=== PATIENT | female | born 1975 | race Caucasian/White ===

== ENCOUNTER 2018-12-29 19:26 | Emergency (ER) | payer MEDICAID ==
[2018-12-29] MEDS ORDERED: METHYLPREDNISOLONE INJ 125 MG/2 ML SDV IV ONE (19:59)
[2018-12-29] MEDS ORDERED: IPRATROPIUM/ALBUTEROL 0.5-2.5 MG/3 ML AMPUL NEB ONE ×2 (19:59→20:39)
--- NOTE | 2018-12-29 20:07 | ER Document Report ---
ED Medical Screen (RME) - General Chief Complaint: Asthma Exacerbation Stated Complaint: DIFFICULTY BREATHING Time Seen by Provider: 12/29/18 19:58 Mode of Arrival: Ambulatory Information source: Patient - HPI Notes: 12/29/18 20:00 25-year-old female presents the ED for evaluation of acute respiratory distress laceration of asthma and COPD, patient states his dad asthma or COPD exacerbation in the last 2 years, she is visiting here from [place], states she did not realize how bad the allergies have been. States she is tried 3 nebs today however they have not helped her. Denies any chest pain, reports shortness of breath denies any nausea vomiting or diarrhea no fevers or chills. LUNGS: Breath sounds clear to auscultation bilaterally and equal. No wheezes rales or rhonchi. HEART: Regular rate and rhythm without murmurs ABDOMEN: Soft, nontender, nondistended abdomen. No guarding, no rebound. No masses appreciated. Female : deferred Musculoskeletal: Normal range of motion, no pitting or edema. No cyanosis. NEUROLOGICAL: Cranial nerves grossly intact. Normal speech, normal gait. Normal sensory, motor exams PSYCH: Normal mood, normal affect. SKIN: Warm, Dry, normal turgor, no rashes or lesions noted. I have greeted and performed a rapid initial assessment of this patient. A comprehensive ED assessment and evaluation of the patient, analysis of test results and completion of medical decision making process will be conducted by an additional ED providers. - Related Data Allergies/Adverse Reactions: No Known Allergies Allergy (Unverified 12/29/18 19:28) Physical Exam - Vital signs Vitals: Temp Pulse Resp BP Pulse Ox 98.1 F 99 26 H 153/52 H 93 12/29/18 19:32 12/29/18 19:32 12/29/18 19:32 12/29/18 19:32 12/29/18 19:32 Course - Vital Signs Vital signs: Temp Pulse Resp BP Pulse Ox 98.1 F 99 26 H 153/52 H 93 12/29/18 19:32 12/29/18 19:32 12/29/18 19:32 12/29/18 19:32 12/29/18 19:32
[2018-12-29 20:13] LABS: ABSOLUTE EOSINOPHILS # (AUTO) 0.7 10^3/uL (0.0-0.6); ABSOLUTE LYMPHOCYTES (AUTO) 3.2 10^3/uL (0.5-4.7); ABSOLUTE MONOCYTES (AUTO) 0.7 10^3/uL (0.1-1.4); ABSOLUTE NEUT (AUTO) 3.3 10^3/uL (1.7-8.2); BASOPHILS % (AUTO) 0.6 % (0-2); EOSINOPHILS % (AUTO) 8.4 % (0-6); HEMATOCRIT 40.7 % (36.0-47.0); LYMPHOCYTES % (AUTO) 40.4 % (13-45); MEAN CORPUSCULAR HEMOGLOBIN 29.2 pg (27.0-33.4); MEAN CORPUSCULAR HGB CONC 34.3 g/dL (32.0-36.0); MEAN CORPUSCULAR VOLUME 85 fl (80-97); MONOCYTES % (AUTO) 8.6 % (3-13); PLATELET COUNT 364 10^3/uL (150-450); RED BLOOD COUNT 4.77 10^6/uL (3.72-5.28); RED CELL DISTRIBUTION WIDTH 14.7 % (11.5-14.0); TOTAL CELLS COUNTED % (AUTO) 100 %; WHITE BLOOD COUNT 7.9 10^3/uL (4.0-10.5)
[2018-12-29] MEDS: MAGNESIUM SULFATE/D5W 1 GM/100 ML RTUPB IV SCH ×2 (20:33→20:59)
[2018-12-29] MEDS ORDERED: MAGNESIUM SULFATE/D5W 1 GM/100 ML RTUPB IV ONE (20:39)
--- NOTE | 2018-12-29 20:43 | ER Document Report ---
ED General - General Chief Complaint: Asthma Exacerbation Stated Complaint: DIFFICULTY BREATHING Time Seen by Provider: 12/29/18 19:58 Mode of Arrival: Ambulatory Information source: Patient, [facility] Records Notes: 43-year-old female with asthma presents with complaint of shortness of breath that started 2 days prior to arrival with worsening today. Patient has been using her nebulizer machine without relief. She is currently visiting from [place] and believes that the change in weather and the pollen may have made her up. She denies smoking, recent illness, leg swelling, chest pain, fever, chills, nausea, vomiting. Patient does report that she has had to be intubated in the past because of her asthma. TRAVEL OUTSIDE OF THE [place] IN LAST 30 DAYS: No - HPI Onset: Other Onset/Duration: Gradual, Persistent, Worse Quality of pain: Achy Severity: Mild Associated symptoms: Shortness of breath. denies: Chest pain, Nonproductive cough, Productive cough, Fever, Nausea, Vomiting Exacerbated by: Walking, Coughing Relieved by: Denies Similar symptoms previously: Yes Recently seen / treated by doctor: Yes - Related Data Allergies/Adverse Reactions: No Known Allergies Allergy (Unverified 12/29/18 19:28) Past Medical History - General Information source: Patient - Social History Smoking Status: Never Smoker Frequency of alcohol use: None Drug Abuse: None Lives with: Spouse/Significant other Family History: Reviewed & Not Pertinent Patient has suicidal ideation: No Patient has homicidal ideation: No Pulmonary Medical History: Reports: Hx Asthma Renal/ Medical History: Denies: Hx Peritoneal Dialysis Review of Systems - Review of Systems Notes: REVIEW OF SYSTEMS: CONSTITUTIONAL : Denies fever, chills, or sweats. Denies recent illness. Denies weight loss, recent hospitalizations. EENT: Denies visual changes, eye pain. Denies sore throat, oral lesions, difficulty swallowing. CARDIOVASCULAR: Denies chest pain. Denies palpitations. Denies lower extremity edema. RESPIRATORY: Denies cough. GASTROINTESTINAL: Denies abdominal pain or distention. Denies nausea, vomiting, or diarrhea. Denies blood in vomitus, stools, or per rectum. Denies black, tarry stools. Denies constipation. GENITOURINARY: Denies difficulty urinating, painful urination, frequency, blood in urine, or vaginal discharge. MUSCULOSKELETAL: Denies back or neck pain or stiffness. Denies joint pain or s welling. SKIN: Denies rash, lesions or sores. HEMATOLOGIC : Denies easy bruising or bleeding. LYMPHATIC: Denies swollen glands. NEUROLOGICAL: Denies confusion or altered mental status. Denies loss of consciousness. Denies dizziness or lightheadedness. Denies headache. Denies weakness or paralysis. Denies problems difficulty with ambulation, slurred speech. Denies sensory loss, numbness, or tingling. Denies seizures. PSYCHIATRIC: Denies anxiety or stress. Denies depression, suicidal ideation, or homicidal ideation. Denies visual or auditory hallucinations. Physical Exam - Vital signs Vitals: Temp Pulse Resp BP Pulse Ox 98.1 F 99 26 H 153/52 H 93 12/29/18 19:32 12/29/18 19:32 12/29/18 19:32 12/29/18 19:32 12/29/18 19:32 - Notes Notes: PHYSICAL EXAMINATION: GENERAL: Well-appearing, well-nourished and in no acute distress. HEAD: Atraumatic, normocephalic. EYES: Pupils equal round and reactive to light, extraocular movements intact, conjunctiva are normal. ENT: Nares patent, oropharynx clear without exudates. Moist mucous membranes. NECK: Normal range of motion, supple without lymphadenopathy LUNGS: Diffuse expiratory wheezing, no increased work of breathing, no accessory muscle use, on room air HEART: Regular rate and rhythm without murmurs ABDOMEN: Soft, nontender, nondistended abdomen. No guarding, no rebound. No masses appreciated. Female : deferred Musculoskeletal: Normal range of motion, no pitting or edema. No cyanosis. NEUROLOGICAL: Cranial nerves grossly intact. Normal speech, normal gait. Normal sensory, motor exams PSYCH: Normal mood, normal affect. SKIN: Warm, Dry, normal turgor, no rashes or lesions noted. Course - Re-evaluation Re-evalutation: 12/29/18 22:08 Patient reevaluated after receiving breathing treatments, magnesium, prednisone and she reports significant improvement of symptoms. 12/30/18 18:44 Patient presents with a mild exacerbation of their baseline asthma. Mild wheezing at time of presentation but vitals do not show significant hypoxemia or tachypnea. No retractions. Patient did clinically improve after receiving nebulizers here in the emergency department. Chest x-ray without evidence of an acute pneumonia. Patient able to ambulate without any respiratory distress. Based on patient's overall reassuring assessment, I believe they are stable for outpatient management with steroids. I do not suspect an acute alternative pathology at this time based on history and exam including acute pulmonary embolus, ACS, pneumothorax, or aortic dissection. At this time will discharge with return precautions and follow-up recommendations. Verbal discharge instructions given a the bedside and opportunity for questions given. Medication warnings reviewed. Patient is in agreement with this plan and has verbalized understanding of return precautions and the need for primary care follow-up in the next 24-72 hours. - Vital Signs Vital signs: Temp Pulse Resp BP Pulse Ox 98.1 F 115 H 13 122/90 H 98 12/29/18 22:02 12/29/18 20:10 12/29/18 22:02 12/29/18 22:02 12/29/18 22:02 - Laboratory Result Diagrams: 12/29/18 20:00 12/29/18 21:24 Laboratory results interpreted by me: 12/29/18 12/29/18 12/29/18 20:00 20:00 21:24 RDW 14.7 H Eosinophils % 8.4 H Absolute Eosinophils 0.7 H Sodium 136.6 L Glucose 117 H Phosphorus 4.6 H - Diagnostic Test Radiology reviewed: Image reviewed, Reports reviewed Discharge - Discharge Clinical Impression: Asthma exacerbation in COPD Condition: Good Disposition: HOME, SELF-CARE Instructions: Asthma ([facility]), Inhaled Bronchodilators ([facility]) Additional Instructions: You were seen for an asthma exacerbation. Your symptoms improved with treatment here in the emergency department. However, it is very important that you return to the emergency department immediately if you began to have worsening difficulty breathing that does not respond to your normal home nebulizers. You are also being sent home on a five-day course of steroids that you should start taking tomorrow. Please also follow closely with your primary care physician. you should also return to emergency department if you develop fever greater than 101, persistent cough, persistent vomiting, pass out, or any other symptoms that are concerning to you. Prescriptions: Prednisone [Deltasone 20 mg Tablet] 2 tab PO DAILY 5 Days #10 tablet Forms: Return to Work
--- NOTE | 2018-12-29 20:44 | RADIOLOGY REPORT (SQ) ---
EXAM DESCRIPTION: XR CHEST 1 VIEW COMPLETED DATE/TME: 12/29/2018 19:58 CLINICAL HISTORY: resp distress COMPARISON: None FINDINGS: Cardiac silhouette is within normal limits. EKG leads project over the chest. There is no focal parenchymal or pleural disease. There is no acute osseous process visualized. IMPRESSION: No evidence of acute cardiopulmonary disease.
[2018-12-29 21:01] LABS: PHOSPHORUS 4.6 mg/dL (2.5-4.5)
[2018-12-29 21:08] LABS: CREATINE KINASE MB 0.81 ng/mL (<4.55)
[2018-12-29 21:09] LABS: TROPONIN I < 0.012 ng/mL
[2018-12-29 21:59] LABS: ALANINE AMINOTRANSFERASE 26 U/L (9-52); ALBUMIN 4.1 g/dL (3.5-5.0); ALKALINE PHOSPHATASE 81 U/L (38-126); ANION GAP 6 (5-19); ASPARTATE AMINO TRANSFERASE 26 U/L (14-36); BILIRUBIN,DIRECT 0.2 mg/dL (0.0-0.4); BILIRUBIN,TOTAL 0.4 mg/dL (0.2-1.3); BLOOD UREA NITROGEN 11 mg/dL (7-20); CALCIUM 9.6 mg/dL (8.4-10.2); CARBON DIOXIDE 28 mmol/L (22-30); CHLORIDE 103 mmol/L (98-107); GLUCOSE 117 mg/dL (75-110); POTASSIUM 4.1 mmol/L (3.6-5.0); SODIUM 136.6 mmol/L (137-145); TOTAL PROTEIN 7.7 g/dL (6.3-8.2)
[2018-12-29] MEDS ORDERED: ALBUTEROL SULFATE HFA (90 MCG/PUFF) 8 GM MDI (1 MDI/ER DISP) IH PRN (22:10)
[2018-12-29 22:21] VITALS: BP 122/90
== END 2018-12-29 22:28 | disposition home or self-care (01) ==
LOC: ER 19:26
DX: J45.901 Unspecified asthma with (acute) exacerbation (principal); J44.9 Chronic obstructive pulmonary disease, unspecified
CPT/HCPCS: 94640 ×2; 99285; 96375; 96365; 36415; 82553; 83735; 84100; 85025; 80053; 84484; 71045; J2930; J3475; J3490; J7620

== ENCOUNTER 2019-01-20 06:33 | Observation (INO) | payer SELFPAY ==
[2019-01-20] MEDS ORDERED: IPRATROPIUM/ALBUTEROL 0.5-2.5 MG/3 ML AMPUL NEB ONE ×3 (06:39→11:08)
--- NOTE | 2019-01-20 06:41 | ER Document Report ---
ED Medical Screen (RME) - General Stated Complaint: DIFFICULTY BREATHING Time Seen by Provider: 01/20/19 06:37 Notes: 43-year-old female chief complaint of asthma exacerbation. She comes by EMS, initial oxygen saturation was 87% on room air. Patient has a history of a sthma/COPD, never smoked. Has received 2 DuoNeb's, 2 g of magnesium, 125 mg of Solu-Medrol. Patient denies fever. Patient does report multiple episodes of intubation secondary to asthma attacks. TRAVEL OUTSIDE OF THE [place] IN LAST 30 DAYS: No - Related Data Allergies/Adverse Reactions: No Known Allergies Allergy (Unverified 12/29/18 19:28) Past Medical History Pulmonary Medical History: Reports: Hx Asthma Renal/ Medical History: Denies: Hx Peritoneal Dialysis Physical Exam - Respiratory Respiratory status: Respiratory distress, Labored, Tachypnea Breath sounds: Decreased air movement, Nonproductive cough, Wheezing Course - Re-evaluation Re-evalutation: Patient with expiratory wheezing throughout, tachypnea, mild respiratory distress. Patient is already received initial interventions, because of ongoing respiratory distress will transition to BiPAP. I have greeted and performed a rapid initial assessment of this patient. A comprehensive ED assessment and evaluation of the patient, analysis of test results and completion of the medical decision making process will be conducted by additional ED providers.
--- NOTE | 2019-01-20 06:46 | ER Document Report ---
ED General - General Stated Complaint: DIFFICULTY BREATHING Time Seen by Provider: 01/20/19 06:37 Notes: 43-year-old female with severe asthma history of multiple asthma attacks, intubation heliox, who just moved from [place] and has no local primary care or pulmonology presents with acute shortness of breath and wheezing which began last night was not too bad and woke up this morning and was quite severe. She was hypoxic for EMS. They gave her several nebs 2 g of magnesium and Solu- Medrol. She was seen by the PA on initial arrival here and given additional neb ulizer therapy. She says that she has not had much cough or has had no fever but has had some mucus that she "cannot get up." No chest pain or leg swelling. TRAVEL OUTSIDE OF THE [place] IN LAST 30 DAYS: No - Related Data Allergies/Adverse Reactions: No Known Allergies Allergy (Verified 01/20/19 07:43) Past Medical History - Social History Smoking Status: Never Smoker Family History: Reviewed & Not Pertinent Pulmonary Medical History: Reports: Hx Asthma Renal/ Medical History: Denies: Hx Peritoneal Dialysis Review of Systems - Review of Systems Notes: REVIEW OF SYSTEMS GEN: Denies fever, chills, weight loss ENT: Denies sore throat, nasal discharge, ear pain EYES: Denies blurry vision, eye pain, discharge CV: Denies chest pain, palpitations, edema RESP: Cough wheezing and shortness of breath GI: Denies abdominal pain, nausea, vomiting, diarrhea MSK: Denies joint pain/swelling, edema, SKIN: Denies rash, skin lesions LYMPH: Denies swollen glands/lymph nodes NEURO: Denies headache, focal weakness or numbness, dizziness PSYCH: Denies depression, suicidal or homicidal ideation PHYSICAL EXAMINATION General: Moderate respiratory distress Head: Atraumatic, normocephalic ENT: Mouth normal, oropharynx moist, no exudates or tonsillar enlargement Eyes: Conjunctiva normal, pupils equal, lids normal Neck: No JVD, supple, no guarding CVS: Normal rate, regular rhythm, no murmurs Resp: GI: Nondistended, soft, no tenderness to palpation, no rebound or guarding Ext: No deformities, no edema, normal range of motion in upper and lower ext Back: No CVA or midline TTP Skin: No rash, warm Lymphatic: No lymphadeopathy noted Neuro: Awake, alert. Face symmetric. GCS 15. Physical Exam - Vital signs Vitals: Resp Pulse Ox 18 100 01/20/19 06:55 01/20/19 06:55 Course - Re-evaluation Re-evalutation: 01/20/19 06:46 Acute asthma exacerbation, slightly better by EMS but still feels short of breath. Will start BiPAP. Has already received mag and steroids. At this point will just continue nebulizers. Will consider appendectomy. 01/20/19 07:07 Reassessed on BiPAP at 705. Respiratory rate is decreased patient appears much more comfortable. She saw to be seen maximal medications, and I will await her chest x-ray and labs but then she will be admitted for observation. 01/20/19 08:14 Patient still stable on BiPAP, chest x-ray does not show acute infiltrate. Discussed with hospitalist, will admit to [facility]. - Vital Signs Vital signs: Temp Pulse Resp BP Pulse Ox 17 119/81 98 01/20/19 07:01 01/20/19 07:01 01/20/19 07:01 - Laboratory Result Diagrams: 01/20/19 06:48 01/20/19 06:48 Laboratory results interpreted by me: 01/20/19 01/20/19 01/20/19 06:48 06:48 06:48 RDW 14.3 H VBG pH 7.29 L Glucose 139 H - Diagnostic Test Radiology reviewed: Image reviewed, Reports reviewed - EKG Interpretation by Me EKG shows normal: Sinus rhythm Rate: Tachycardia Rhythm: NSR When compared to previous EKG there are: Previous EKG unavailable Critical Care Note - Critical Care Note Total time excluding time spent on procedures (mins): 32 Comments: The above patient is critically ill. Not including procedures, but including direct re-evaluations, speaking with patient and/or consultants, interpreting results, and documenting, I spent the total amount of minute listed listed above on critical care time Discharge - Discharge Clinical Impression: Severe asthma with exacerbation Qualifiers: Asthma persistence: persistent Qualified Code(s): J45.51 - Severe persistent asthma with (acute) exacerbation Condition: Critical Disposition: ADMITTED INPATIENT Admitting Provider: Bartolo (Hospitalist) Unit Admitted: [facility]
[2019-01-20 07:22] LABS: ABSOLUTE EOSINOPHILS # (AUTO) 0.2 10^3/uL (0.0-0.6); ABSOLUTE LYMPHOCYTES (AUTO) 1.9 10^3/uL (0.5-4.7); ABSOLUTE MONOCYTES (AUTO) 0.4 10^3/uL (0.1-1.4); BASOPHILS % (AUTO) 0.5 % (0-2); EOSINOPHILS % (AUTO) 2.7 % (0-6); HEMATOCRIT 38.8 % (36.0-47.0); HEMOGLOBIN 13.1 g/dL (12.0-15.5); LYMPHOCYTES % (AUTO) 25.1 % (13-45); MEAN CORPUSCULAR HGB CONC 33.7 g/dL (32.0-36.0); MEAN CORPUSCULAR VOLUME 86 fl (80-97); MONOCYTES % (AUTO) 5.5 % (3-13); PLATELET COUNT 287 10^3/uL (150-450); RED CELL DISTRIBUTION WIDTH 14.3 % (11.5-14.0); SEGMENTED NEUTROPHILS % (AUTO) 66.2 % (42-78); TOTAL CELLS COUNTED % (AUTO) 100 %; VENOUS BLOOD HCO3 26.6 mmol/L (20-32); VENOUS BLOOD PCO2 56.5 mmHg (35-63); VENOUS BLOOD PH 7.29 (7.30-7.42); WHITE BLOOD COUNT 7.6 10^3/uL (4.0-10.5)
[2019-01-20 07:39] LABS: ANION GAP 10 (5-19); BLOOD UREA NITROGEN 14 mg/dL (7-20); CALCIUM 9.3 mg/dL (8.4-10.2); CARBON DIOXIDE 27 mmol/L (22-30); CHLORIDE 102 mmol/L (98-107); GLUCOSE 139 mg/dL (75-110); POTASSIUM 3.8 mmol/L (3.6-5.0)
--- NOTE | 2019-01-20 08:21 | RADIOLOGY REPORT (SQ) ---
EXAM DESCRIPTION: CHEST SINGLE VIEW COMPLETED DATE/TIME: 01/20/2019 7:16 am REASON FOR STUDY: shortness of breath COMPARISON: AP chest 12/29/2018 EXAM PARAMETERS: NUMBER OF VIEWS: One view. TECHNIQUE: Single frontal radiographic view of the chest acquired. RADIATION DOSE: NA LIMITATIONS: None. FINDINGS: LUNGS AND PLEURA: No opacities, masses or pneumothorax. No pleural effusion. MEDIASTINUM AND HILAR STRUCTURES: No masses. Contour normal. HEART AND VASCULAR STRUCTURES: Heart normal in size. Normal vasculature. BONES: No acute findings. HARDWARE: None in the chest. OTHER: No other significant finding. IMPRESSION: NO ACUTE RADIOGRAPHIC FINDING IN THE CHEST. TECHNICAL DOCUMENTATION: JOB ID: [id number] [employer]- All Rights Reserved Reading location - IP/workstation name: [email or web address]
[2019-01-20] MEDS ORDERED: PROMETHAZINE HCL INJ 25 MG/1 ML VIAL IV PRN (10:54)
[2019-01-20] MEDS ORDERED: ACETAMINOPHEN 325 MG TABLET PO PRN (10:54)
[2019-01-20] MEDS ORDERED: ONDANSETRON 4 MG TAB.RAPDIS PO PRN (10:54)
[2019-01-20 11:54] LABS: CHOLESTEROL 187.58 mg/dL (0-200); TRIGLYCERIDES 86 mg/dL (<150)
[2019-01-20 12:04] LABS: DIRECT LDL 88 mg/dL (<100)
--- NOTE | 2019-01-20 12:13 | PDOC H&P ---
History of Present Illness Admission Date/PCP: 01/20/19 08:02 History of Present Illness: ANIBAL QUINN is a 43 year old female past medical history of asthma, intubated 10 years ago, pernicious anemia, moved from [facility] September 2018. Not have established PCP or cyanide pot tender in [facility]. PT presenting to ED planing of acute shortness of breath starting last night, yesterday she was doing fine but last night she woke up with quite severe dose of breath and wheezing, gave herself neb treatments and took 40 mg of prednisone at home with no significant improvement. She is also complaining of pleuritic epigastric, sharp and pressure-like chest pain, worse with coughing and movement, relieved by rest. Denies any nausea, vomiting, recent sick contacts, recent travel, abdominal pain, diarrhea, constipation, weight gain, weight loss, weakness or any urinary symptoms. In ED SPO2 was 100% FiO2 25%, 2 L nasal cannula, RR 13-21. CBC within normal limits, VBG pH 7.29, PCO2 56.5, chemistry within normal limits. She was given nebs and started on BiPAP and hospitalist was consulted for admission. On my encounter patient comfortably sitting in bed, off of BiPAP, on 2 L nasal cannula, does not seem to be in any acute distress. However on physical examination patient has significant inspiratory and expiratory wheezes. Past Medical History Pulmonary Medical History: Reports: Asthma Social History Smoking Status: Never Smoker Family History Family History: Reviewed & Not Pertinent Parental Family History Reviewed: Yes - CAD in mother Children Family History Reviewed: Yes Sibling(s) Family History Reviewed.: Yes Medication/Allergy Home Medications: Albuterol Sulfate [Proair HFA Inhalation Aerosol 8.5 gm MDI] 2 puff IH Q4HP PRN 01/20/19 Albuterol Sulfate [Ventolin 0.083% Neb 2.5 mg/3 mL Ampul] 1 vial NEB RTQ4HP PRN 01/20/19 Cyanocobalamin (Vitamin B-12) [Vitamin B-12 1000 mcg Tablet] 1,000 mcg PO DAILY 01/20/19 Loratadine [Claritin 10 mg Tablet] 10 mg PO DAILY 01/20/19 Allergies/Adverse Reactions: No Known Allergies Allergy (Verified 01/20/19 07:43) Physical Exam Vital Signs: Temp Pulse Resp BP Pulse Ox 21 H 116/85 94 01/20/19 11:01 01/20/19 11:01 01/20/19 11:01 Intake & Output 01/19/19 01/20/19 01/21/19 06:59 06:59 06:59 Weight 64 kg General appearance: PRESENT: no acute distress Head exam: PRESENT: atraumatic, normocephalic Eye exam: PRESENT: conjunctiva pink, EOMI, PERRLA. ABSENT: scleral icterus Ear exam: PRESENT: normal external ear exam Mouth exam: PRESENT: moist, tongue midline Neck exam: ABSENT: carotid bruit, JVD, lymphadenopathy, thyromegaly Respiratory exam: PRESENT: clear to auscultation mariano, prolonged expiratory phas, wheezes. ABSENT: rales, rhonchi Cardiovascular exam: PRESENT: RRR. ABSENT: diastolic murmur, rubs, systolic murmur Pulses: PRESENT: normal dorsalis pedis pul Vascular exam: PRESENT: normal capillary refill GI/Abdominal exam: PRESENT: normal bowel sounds, soft. ABSENT: distended, guarding, mass, organolmegaly, rebound, tenderness Rectal exam: PRESENT: deferred Extremities exam: PRESENT: full ROM. ABSENT: calf tenderness, clubbing, pedal edema Neurological exam: PRESENT: alert, awake, oriented to person, oriented to place, oriented to time, oriented to situation, CN II-XII grossly intact. ABSENT: motor sensory deficit Psychiatric exam: PRESENT: appropriate affect, normal mood. ABSENT: homicidal ideation, suicidal ideation Skin exam: PRESENT: dry, intact, warm. ABSENT: cyanosis, rash Results Laboratory Results: 01/20/19 06:48 01/20/19 06:48 01/20/19 01/20/19 01/20/19 06:48 06:48 06:48 WBC 7.6 RBC 4.50 Hgb 13.1 Hct 38.8 MCV 86 MCH 29.0 MCHC 33.7 RDW 14.3 H Plt Count 287 Seg Neutrophils % 66.2 Lymphocytes % 25.1 Monocytes % 5.5 Eosinophils % 2.7 Basophils % 0.5 Absolute Neutrophils 5.0 Absolute Lymphocytes 1.9 Absolute Monocytes 0.4 Absolute Eosinophils 0.2 Absolute Basophils 0.0 VBG pH 7.29 L VBG pCO2 56.5 VBG HCO3 26.6 VBG Base Excess -1.0 Sodium 139.0 Potassium 3.8 Chloride 102 Carbon Dioxide 27 Anion Gap 10 BUN 14 Creatinine 0.74 Est GFR ( Amer) > 60 Est GFR (Non-Af Amer) > 60 Glucose 139 H Calcium 9.3 Serum HCG, Qual 01/20/19 06:48 WBC RBC Hgb Hct MCV MCH MCHC RDW Plt Count Seg Neutrophils % Lymphocytes % Monocytes % Eosinophils % Basophils % Absolute Neutrophils Absolute Lymphocytes Absolute Monocytes Absolute Eosinophils Absolute Basophils VBG pH VBG pCO2 VBG HCO3 VBG Base Excess Sodium Potassium Chloride Carbon Dioxide Anion Gap BUN Creatinine Est GFR ( Amer) Est GFR (Non-Af Amer) Glucose Calcium Serum HCG, Qual NEGATIVE 01/20/19 06:48 Troponin I < 0.012 Impressions: Chest X-Ray 01/20/19 06:39 IMPRESSION: NO ACUTE RADIOGRAPHIC FINDING IN THE CHEST. Assessment and Plan - Diagnosis (1) Acute asthma exacerbation Qualifiers: Asthma severity: moderate Is this a current diagnosis for this admission?: Yes Plan: DuoNeb's, IV steroids, BiPAP, supplemental oxygen. Outpatient PCP and cyanide pot tender follow-up. (2) Acute respiratory failure with hypoxia Is this a current diagnosis for this admission?: Yes Plan: As per #1. (3) Pernicious anemia Is this a current diagnosis for this admission?: No Plan: Pernicious anemia. CBC within normal limits. Continue B12 daily. (4) Chest pain Qualifiers: Chest pain type: chest pain on breathing Qualified Code(s): R07.1 - Chest pain on breathing; R07.81 - Pleurodynia Is this a current diagnosis for this admission?: Yes Plan: Pleuritic chest pain. Likely due to excessive coughing. Tender to palpation over anterior chest. We will do a cardiac work-up in view of patient's positive family history. Patient mother had heart attack at age 40. Start on aspirin, order troponins, lipid panel and A1c.
[2019-01-20] MEDS ORDERED: ASPIRIN 81 MG TABLET, CHEWABLE PO SCH (12:15)
[2019-01-20 12:50] LABS: FREE T3 5.18 pg/mL (2.77-5.27); FREE T4 (FREE THYROXINE) 1.02 ng/dL (0.78-2.19)
[2019-01-20 13:03] LABS: THYROID STIMULATING HORMONE 7.55 uIU/mL (0.47-4.68)
[2019-01-20] MEDS: ENOXAPARIN SODIUM INJ 40 MG/0.4 ML DISP.SYRIN SUBCUT SCH (13:11)
[2019-01-20] MEDS: CYANOCOBALAMIN (VITAMIN B-12) 1,000 MCG TABLET PO SCH (13:11)
[2019-01-20] MEDS: METHYLPREDNISOLONE INJ 40 MG/1 ML SDV IV SCH ×2 (13:11→21:30)
[2019-01-20] MEDS: IPRATROPIUM/ALBUTEROL 0.5-2.5 MG/3 ML AMPUL NEB SCH ×2 (13:19→20:32)
[2019-01-20] MEDS: PANTOPRAZOLE SODIUM 40 MG TABLET.DR PO SCH (17:36)
[2019-01-20] MEDS ORDERED: GUAIFENESIN/CODEINE PHOS 100-10 MG/ 5 ML UDC PO PRN (17:45)
[2019-01-20] MEDS ORDERED: IPRATROPIUM/ALBUTEROL 0.5-2.5 MG/3 ML AMPUL NEB PRN (18:42)
--- NOTE | 2019-01-20 19:40 | EKG REPORT ---
SEVERITY:- OTHERWISE NORMAL ECG - SINUS TACHYCARDIA : Confirmed by: Eliz Gonzalez MD 20-Jan-2019 19:39:42
[2019-01-20 20:57] LABS: ARTERIAL BLOOD BASE EXCESS -1.8 mmol/L; ARTERIAL BLOOD H2CO3 0.88 mmol/L (1.05-1.35); ARTERIAL BLOOD HCO3 20.7 mmol/L (20-24); ARTERIAL BLOOD O2 SATURATION 98.1 % (94-98); ARTERIAL BLOOD PCO2 29.1 mmHg (35-45); ARTERIAL BLOOD PH 7.47 (7.35-7.45); ARTERIAL BLOOD PO2 102.8 mmHg (80-100); ARTERIAL BLOOD TOTAL CO2 21.6 mmol/L (21-25)
[2019-01-20 20:58] LABS: ARTERIAL BLOOD FIO2 25%
[2019-01-20] MEDS: OXYCODONE-ACETAMINOPHEN 5-325 MG TABLET PO PRN (21:38)
[2019-01-21] MEDS: METHYLPREDNISOLONE INJ 40 MG/1 ML SDV IV SCH ×2 (05:12→14:06)
[2019-01-21] MEDS: OXYCODONE-ACETAMINOPHEN 5-325 MG TABLET PO PRN ×2 (05:12→14:08)
[2019-01-21] MEDS: PANTOPRAZOLE SODIUM 40 MG TABLET.DR PO SCH (05:12)
[2019-01-21 05:55] LABS: ABSOLUTE LYMPHOCYTES (AUTO) 1.1 10^3/uL (0.5-4.7); ABSOLUTE MONOCYTES (AUTO) 0.5 10^3/uL (0.1-1.4); ABSOLUTE NEUT (AUTO) 9.1 10^3/uL (1.7-8.2); BASOPHILS % (AUTO) 0.3 % (0-2); HEMOGLOBIN 12.3 g/dL (12.0-15.5); LYMPHOCYTES % (AUTO) 10.3 % (13-45); MEAN CORPUSCULAR HEMOGLOBIN 29.6 pg (27.0-33.4); MEAN CORPUSCULAR HGB CONC 34.2 g/dL (32.0-36.0); MEAN CORPUSCULAR VOLUME 87 fl (80-97); MONOCYTES % (AUTO) 4.5 % (3-13); PLATELET COUNT 307 10^3/uL (150-450); RED BLOOD COUNT 4.16 10^6/uL (3.72-5.28); RED CELL DISTRIBUTION WIDTH 14.8 % (11.5-14.0); SEGMENTED NEUTROPHILS % (AUTO) 84.9 % (42-78); TOTAL CELLS COUNTED % (AUTO) 100 %; WHITE BLOOD COUNT 10.7 10^3/uL (4.0-10.5)
[2019-01-21 06:18] LABS: ANION GAP 13 (5-19); BLOOD UREA NITROGEN 14 mg/dL (7-20); CALCIUM 9.5 mg/dL (8.4-10.2); CARBON DIOXIDE 23 mmol/L (22-30); CHLORIDE 102 mmol/L (98-107); GLUCOSE 132 mg/dL (75-110); SODIUM 138.1 mmol/L (137-145)
[2019-01-21 06:32] LABS: POTASSIUM 4.8 mmol/L (3.6-5.0)
[2019-01-21] MEDS: IPRATROPIUM/ALBUTEROL 0.5-2.5 MG/3 ML AMPUL NEB SCH ×2 (07:49→13:49)
[2019-01-21] MEDS: CYANOCOBALAMIN (VITAMIN B-12) 1,000 MCG TABLET PO SCH (09:53)
[2019-01-21] MEDS: ENOXAPARIN SODIUM INJ 40 MG/0.4 ML DISP.SYRIN SUBCUT SCH (09:53)
[2019-01-21] MEDS ORDERED: DOCUSATE SODIUM 100 MG CAPSULE PO SCH (10:00)
[2019-01-21 12:00] VITALS: BP 108/66
[2019-01-21] MEDS ORDERED: ALBUTEROL SULFATE HFA (90 MCG/PUFF) 200 PUFF/8.5 GM MDI IH ONE (16:00)
--- NOTE | 2019-01-24 13:13 | PDOC DISCHARGE SUMMARY ---
General - Admit/Disc Date/PCP Admission Date/Primary Care Provider: 01/20/19 08:02 Discharge Date: 01/21/19 - Discharge Diagnosis (1) Acute asthma exacerbation Is this a current diagnosis for this admission?: Yes Summary: Significantly improved. Patient was admitted to the medical floor on continuous cardiac telemetry. She was provided supplemental oxygen, BiPAP, nebulizer treatments, and steroid therapy. Her symptoms rapidly improved and on day of discharge, the patient was ambulatory on room air without difficulty and maintaining oxygen saturations in the mid 90s. She continues to have expiratory wheezing, but requests to be discharged to home. She reports that she has a functional nebulizer machine and plenty of albuterol solution at home. The patient is discharged to home with self care. She is provided prescriptions for an Albuterol rescue inhaler and a prednisone geraldine. She is advised to stop smoking and avoid known triggers. She is instructed to follow up with her primary care provider within 1 week and to return to the emergency department as needed for concerning symptoms. (2) Acute respiratory failure with hypoxia Is this a current diagnosis for this admission?: Yes Summary: Resolved; secondary to #1. (3) Chest pain Is this a current diagnosis for this admission?: Yes Summary: Pleuritic chest pain. Likely due to excessive coughing. Tender to palpation over anterior chest. Troponin negative. A1C 4.9% Lipid panel is acceptable. TSH elevated to 7.55; Free T3 and Free T4 nml. CXR was benign. EKG showed Sinus tach w/o ST segment changes. (4) Pernicious anemia Is this a current diagnosis for this admission?: No Summary: Patient reports Hx of pernicious anemia. CBC within normal limits. Continue B12 daily. - Additional Information Resuscitation Status: Full Code Discharge Diet: As Tolerated Discharge Activity: Activity As Tolerated, Balance Activity w/Rest Prescriptions: Albuterol Sulfate [Proair HFA Inhalation Aerosol 8.5 gm MDI] 2 puff IH Q4HP PRN #1 [email or web address] PRN Reason: SHORTNESS OF BREATH/WHEEZING Prednisone [Deltasone 20 mg Tablet] 20 mg PO ASDIR PRN #20 tablet PRN Reason: Home Medications: Albuterol Sulfate [Ventolin 0.083% Neb 2.5 mg/3 mL Ampul] 1 vial NEB RTQ4HP PRN 01/20/19 Cyanocobalamin (Vitamin B-12) [Vitamin B-12 1000 mcg Tablet] 1,000 mcg PO DAILY 01/20/19 Loratadine [Claritin 10 mg Tablet] 10 mg PO DAILY 01/20/19 Acetaminophen [Tylenol 325 mg Tablet] 650 mg PO Q4HP PRN tablet 01/21/19 Albuterol Sulfate [Proair HFA Inhalation Aerosol 8.5 gm MDI] 2 puff IH Q4HP PRN #1 [email or web address] 01/21/19 Prednisone [Deltasone 20 mg Tablet] 20 mg PO ASDIR PRN #20 tablet 01/21/19 History of Present Illness History of Present Illness: Per H&P by Dr. Mcfarland: ANIBAL QUINN is a 43 year old female past medical history of asthma, intubated 10 years ago, pernicious anemia, moved from [facility] September 2018. Not have established PCP or hospital nurse in [facility]. PT presenting to ED planing of acute shortness of breath starting last night, yesterday she was doing fine but last night she woke up with quite severe dose of breath and wheezing, gave herself neb treatments and took 40 mg of prednisone at home with no significant improvement. She is also complaining of pleuritic epigastric, sharp and pressure-like chest pain, worse with coughing and movement, relieved by rest. Denies any nausea, vomiting, recent sick contacts, recent travel, abdominal pain, diarrhea, constipation, weight gain, weight loss, weakness or any urinary symptoms. In ED SPO2 was 100% FiO2 25%, 2 L nasal cannula, RR 13-21. CBC within normal limits, VBG pH 7.29, PCO2 56.5, chemistry within normal limi ts. She was given nebs and started on BiPAP and hospitalist was consulted for admission. On my encounter patient comfortably sitting in bed, off of BiPAP, on 2 L nasal cannula, does not seem to be in any acute distress. However on physical examination patient has significant inspiratory and expiratory wheezes. Physical Exam Vital Signs: Temp Pulse Resp BP Pulse Ox 97.8 F 79 18 108/66 97 01/21/19 15:58 01/21/19 15:58 01/21/19 15:58 01/21/19 11:23 01/21/19 15:58 General appearance: PRESENT: no acute distress, cooperative, well-developed, well-nourished Head exam: PRESENT: atraumatic, normocephalic Eye exam: PRESENT: conjunctiva pink, EOMI, PERRLA. ABSENT: scleral icterus Ear exam: PRESENT: normal external ear exam Mouth exam: PRESENT: moist, tongue midline Neck exam: ABSENT: carotid bruit, JVD, lymphadenopathy, thyromegaly Respiratory exam: PRESENT: clear to auscultation mariano, symmetrical, unlabored, wheezes. ABSENT: rales, rhonchi Cardiovascular exam: PRESENT: RRR. ABSENT: diastolic murmur, rubs, systolic murmur Pulses: PRESENT: normal dorsalis pedis pul Vascular exam: PRESENT: normal capillary refill GI/Abdominal exam: PRESENT: normal bowel sounds, soft. ABSENT: distended, guarding, mass, organolmegaly, rebound, tenderness Rectal exam: PRESENT: deferred Extremities exam: PRESENT: full ROM. ABSENT: calf tenderness, clubbing, pedal edema Musculoskeletal exam: PRESENT: ambulatory Neurological exam: PRESENT: alert, awake, oriented to person, oriented to place, oriented to time, oriented to situation, CN II-XII grossly intact. ABSENT: motor sensory deficit Psychiatric exam: PRESENT: appropriate affect, normal mood. ABSENT: homicidal ideation, suicidal ideation Skin exam: PRESENT: dry, intact, warm. ABSENT: cyanosis, rash Results Laboratory Results: 01/21/19 04:58 01/21/19 04:58 01/20/19 06:48 Troponin I < 0.012 Impressions: Chest X-Ray 01/20/19 06:39 IMPRESSION: NO ACUTE RADIOGRAPHIC FINDING IN THE CHEST. Qualifiers - * PATIENT BEING DISCHARGED WITH ANY OF THE FOLLOWING DIAGNOSIS: No Acute Heart Failure Is this a Heart Failure Patient?: No Plan Discharge Plan: Follow up with primary care provider within 1 week. Avoid known triggers (allergens, dust, pollen, smoke). Do NOT smoke. Return to the emergency department as needed for concerning symptoms. Time Spent: Less than 30 Minutes
== END 2019-01-21 16:47 | disposition home or self-care (01) ==
LOC: ER 06:33 → INTOOBSV 08:02 → EH 08:02 → 3W 16:47
PROVIDERS: ADMIT Internal Medicine; ATTEND Internal Medicine
DX: J45.901 Unspecified asthma with (acute) exacerbation (principal); J96.01 Acute respiratory failure with hypoxia; R07.81 Pleurodynia; D51.0 Vitamin B12 deficiency anemia due to intrinsic factor deficiency; J45.41 Moderate persistent asthma with (acute) exacerbation; Z79.899 Other long term (current) drug therapy; Z82.49 Family history of ischemic heart disease and other diseases of the circulatory system
CPT/HCPCS: 93005; 94640 ×4; 99291; 36415 ×2; 84439; 82803 ×2; 83735; 84443; 84703; 85025 ×2; 80048 ×2; 84484; 84481; 83036; 80061; 71045; 93010; 36600; 94660 ×2; J2920 ×2; J1650 ×2; J3490 ×3; J7620 ×2; G0378

== ENCOUNTER 2019-06-04 20:23 | Inpatient (IN) | payer SELFPAY ==
[2019-06-04 20:51] LABS: VENOUS BLOOD BASE EXCESS -4.5 mmol/L; VENOUS BLOOD HCO3 20.7 mmol/L (20-32); VENOUS BLOOD PCO2 38.8 mmHg (35-63); VENOUS BLOOD PH 7.35 (7.30-7.42)
[2019-06-04 20:55] LABS: ABSOLUTE EOSINOPHILS # (AUTO) 0.7 10^3/uL (0.0-0.6); ABSOLUTE LYMPHOCYTES (AUTO) 2.5 10^3/uL (0.5-4.7); ABSOLUTE MONOCYTES (AUTO) 0.9 10^3/uL (0.1-1.4); ABSOLUTE NEUT (AUTO) 9.3 10^3/uL (1.7-8.2); BASOPHILS % (AUTO) 0.3 % (0-2); EOSINOPHILS % (AUTO) 4.9 % (0-6); HEMATOCRIT 40.1 % (36.0-47.0); HEMOGLOBIN 13.7 g/dL (12.0-15.5); LYMPHOCYTES % (AUTO) 18.5 % (13-45); MEAN CORPUSCULAR HEMOGLOBIN 28.7 pg (27.0-33.4); MEAN CORPUSCULAR HGB CONC 34.2 g/dL (32.0-36.0); MEAN CORPUSCULAR VOLUME 84 fl (80-97); MONOCYTES % (AUTO) 7.1 % (3-13); PLATELET COUNT 368 10^3/uL (150-450); RED BLOOD COUNT 4.77 10^6/uL (3.72-5.28); RED CELL DISTRIBUTION WIDTH 15.3 % (11.5-14.0); SEGMENTED NEUTROPHILS % (AUTO) 69.2 % (42-78); TOTAL CELLS COUNTED % (AUTO) 100 %; WHITE BLOOD COUNT 13.4 10^3/uL (4.0-10.5)
[2019-06-04] MEDS ORDERED: ALBUTEROL SULFATE 0.083% NEB 2.5 MG/3 ML AMPUL NEB ONE ×4 (20:59→22:50)
[2019-06-04 21:05] LABS: ALBUMIN 4.4 g/dL (3.5-5.0); ALKALINE PHOSPHATASE 96 U/L (38-126); ANION GAP 11 (5-19); ASPARTATE AMINO TRANSFERASE 28 U/L (14-36); BILIRUBIN,DIRECT 0.1 mg/dL (0.0-0.4); BILIRUBIN,TOTAL 0.7 mg/dL (0.2-1.3); BLOOD UREA NITROGEN 6 mg/dL (7-20); CALCIUM 9.2 mg/dL (8.4-10.2); CARBON DIOXIDE 24 mmol/L (22-30); CHLORIDE 104 mmol/L (98-107); GLUCOSE 103 mg/dL (75-110); POTASSIUM 3.4 mmol/L (3.6-5.0); TOTAL PROTEIN 7.9 g/dL (6.3-8.2)
--- NOTE | 2019-06-04 21:22 | RADIOLOGY REPORT (SQ) ---
EXAM DESCRIPTION: [facility]: XR CHEST 1 VIEW CLINICAL HISTORY: 44 years Female, Difficulty breathing COMPARISON: 01/20/2019 FINDINGS: Lungs are clear, with no focal infiltrate, pneumothorax, or pleural effusion. Mediastinum is within normal limits for this positioning. Bony structures are unremarkable. IMPRESSION: 1. No acute pulmonary findings.
[2019-06-04] MEDS ORDERED: ACETAMINOPHEN 325 MG TABLET PO ONE (23:41)
[2019-06-05] MEDS ORDERED: ALBUTEROL SULFATE 0.083% NEB 2.5 MG/3 ML AMPUL NEB ONE (00:36)
--- NOTE | 2019-06-05 00:42 | ER Document Report ---
ED General - General Chief Complaint: Breathing Difficulty Stated Complaint: BREATHING PROBLEM Time Seen by Provider: 06/04/19 20:40 Notes: 44-year-old female presents emergency department via EMS for asthma/COPD exacerbation. Patient states that she has been having cough and shortness of breath it has been getting progressively worse for the past 2 days. 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 Patient states she has been intubated for this 5 times in the past. Patient denies any fever, complains of chest pain but denies any pain anywhere else. EMS gave her 2 g of magnesium, 3 DuoNeb's, 1 extra albuterol treatment and 125 mg of Solu-Medrol. They put her on CPAP at 7-1/2 with some relief. TRAVEL OUTSIDE OF THE [place] IN LAST 30 DAYS: No - Related Data Allergies/Adverse Reactions: No Known Allergies Allergy (Verified 06/04/19 20:45) Past Medical History - General Information source: Patient, Emergency Med Personnel - Social History Smoking Status: Never Smoker Frequency of alcohol use: None Drug Abuse: None Family History: Reviewed & Not Pertinent Patient has suicidal ideation: No Patient has homicidal ideation: No Pulmonary Medical History: Reports: Hx Asthma Renal/ Medical History: Denies: Hx Peritoneal Dialysis Past Surgical History: Reports: Hx Orthopedic Surgery - wrist Review of Systems - Review of Systems Constitutional: No symptoms reported Cardiovascular: See HPI Respiratory: See HPI Gastrointestinal: No symptoms reported -: Yes All other systems reviewed and negative Physical Exam - Vital signs Vitals: Pulse 140 H 06/04/19 20:23 Interpretation: Tachycardic, Tachypneic - Notes Notes: GENERAL: Alert, awake, sitting straight up in bed, using accessory muscles of respiration appears very short of breath. HEAD: Normocephalic, atraumatic EYES: Pupils equal, round and reactive to light, extraocular movements intact. ENT: Oral mucosa moist, tongue midline. NECK: Full range of motion, supple, trachea midline. LUNGS: Poor air movement, expiratory wheezing, minimal lower inspiratory rhonchi, appears acutely short of breath, using accessory muscles of respiration. Tachypnea. HEART: Tachycardic rate and rhythm, no murmurs, gallops, rubs. ABDOMEN: Soft, nontender, nondistended, bowel sounds present in all 4 quadrants. EXTREMITIES: Moves all 4 extremities spontaneously, no edema, radial and dorsalis pedis pulses 2/4 bilaterally. No cyanosis. NEUROLOGICAL: Alert and oriented x3, normal speech, biceps and patellar DTRs 2+ bilaterally. PSYCH: Anxious. SKIN: Warm, Dry, normal turgor, no rashes or lesions noted. Course - Re-evaluation Re-evalutation: 06/05/19 01:09 Patient transitioned from CPAP to BiPAP, given multiple other breathing treatments, is showing some improvement, able to be weaned off of BiPAP, still has some mild expiratory wheezing, now able to sleep and is not using accessory muscles of respiration, has better air movement, is 92% on room air, will be placed on 2 L via nasal cannula per request by Dr. Jim, CBC shows leukocytosis at 13.4, venous blood gas is not acidotic and shows no CO2 retention, CMP grossly unremarkable, chest x-ray shows no acute process. Given persistent wheezing though markedly improved after multiple breathing treatments and magnesium patient was discussed with Dr. Jim who agrees to accept the patient to his service in admission status to the medical floor. - Vital Signs Vital signs: Temp Pulse Resp BP Pulse Ox 114 H 24 H 107/73 92 06/04/19 21:06 06/05/19 00:15 06/05/19 00:15 06/05/19 00:14 - Laboratory Result Diagrams: 06/04/19 20:35 06/04/19 20:35 Laboratory results interpreted by me: 06/04/19 06/04/19 20:35 20:35 WBC 13.4 H RDW 15.3 H Absolute Neuts (auto) 9.3 H Absolute Eos (auto) 0.7 H Potassium 3.4 L BUN 6 L - EKG Interpretation by Me Additional EKG results interpreted by me: 06/05/19 01:10 EKG shows sinus tachycardia at a rate of 137, normal axis, normal intervals, no ST segment elevations or depressions, rapid R wave progression per my interpretation. Critical Care Note - Critical Care Note Total time excluding time spent on procedures (mins): 40 Discharge - Discharge Clinical Impression: Acute respiratory failure with hypoxia Acute asthma exacerbation Qualifiers: Asthma severity: severe Asthma persistence: persistent Qualified Code(s): J45.51 - Severe persistent asthma with (acute) exacerbation Severe asthma with exacerbation Qualifiers: Asthma persistence: persistent Qualified Code(s): J45.51 - Severe persistent asthma with (acute) exacerbation Condition: Fair Disposition: ADMITTED INPATIENT Admitting Provider: Hernán (Hospitalist) Unit Admitted: ICU
[2019-06-05] MEDS ORDERED: TEMAZEPAM 15 MG CAPSULE PO PRN (04:31)
[2019-06-05] MEDS ORDERED: LEVALBUTEROL HCL NEB 0.63 MG/3 ML AMPUL NEB PRN (04:31)
[2019-06-05] MEDS ORDERED: MAGNESIUM HYDROXIDE SUSP 30 ML UDCUP PO PRN (04:31)
[2019-06-05] MEDS ORDERED: ONDANSETRON HCL INJ/PF 4 MG/2 ML SDV IV PRN (04:31)
[2019-06-05] MEDS ORDERED: MAG HYDROX/AL HYDROX/SIMETH SUSP 30 ML UDCUP PO PRN (04:31)
[2019-06-05] MEDS ORDERED: IBUPROFEN 800 MG TABLET PO PRN (04:36)
[2019-06-05] MEDS ORDERED: NALBUPHINE HCL INJ 10 MG/1 ML AMPULE IV PRN ×3 (04:36→04:43)
[2019-06-05] MEDS ORDERED: ACETAMINOPHEN 325 MG TABLET PO PRN (04:36)
[2019-06-05] MEDS: HEPARIN SOD (PORCINE) 5,000 UNIT/ML 1 ML VIAL SUBCUT SCH ×3 (05:40→22:47)
[2019-06-05] MEDS ORDERED: METHYLPREDNISOLONE INJ 40 MG/1 ML SDV IV SCH (06:00)
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
[2019-06-05 07:38] LABS: CREATINE KINASE MB 1.86 ng/mL (<4.55)
[2019-06-05 07:39] LABS: FREE T3 3.73 pg/mL (2.77-5.27); FREE T4 (FREE THYROXINE) 0.93 ng/dL (0.78-2.19)
[2019-06-05 07:46] LABS: TROPONIN I < 0.012 ng/mL
[2019-06-05 07:53] LABS: THYROID STIMULATING HORMONE 0.23 uIU/mL (0.47-4.68)
[2019-06-05] MEDS ORDERED: LEVALBUTEROL HCL NEB 1.25 MG/3 ML AMPUL NEB SCH (08:00)
[2019-06-05] MEDS ORDERED: IPRATROPIUM BROMIDE 0.02% NEB 0.5 MG/2.5 ML AMPUL NEB SCH (08:00)
[2019-06-05] MEDS: BUDESONIDE NEB 0.5 MG/2 ML AMPUL NEB SCH ×2 (08:27→20:18)
[2019-06-05] MEDS: CYANOCOBALAMIN (VITAMIN B-12) 1,000 MCG TABLET PO SCH (10:24)
[2019-06-05] MEDS: FAMOTIDINE 20 MG TABLET PO SCH ×2 (10:24→22:47)
[2019-06-05] MEDS: LORATADINE 10 MG TABLET PO SCH (10:24)
[2019-06-05] MEDS: DOCUSATE SODIUM 100 MG CAPSULE PO SCH ×2 (10:24→17:40)
[2019-06-05] MEDS ORDERED: ALBUTEROL SULFATE HFA (90 MCG/PUFF) 200 PUFF/8.5 GM MDI IH PRN (10:46)
[2019-06-05] MEDS ORDERED: ALBUTEROL SULFATE 0.083% NEB 2.5 MG/3 ML AMPUL NEB PRN (10:46)
[2019-06-05] MEDS: PREDNISONE 20 MG TABLET PO SCH (11:43)
[2019-06-05] MEDS: GUAIFENESIN SYRP 200 MG/10 ML UDC PO PRN ×2 (11:43→16:04)
[2019-06-05 13:53] LABS: CREATINE KINASE MB 2.09 ng/mL (<4.55)
[2019-06-05 13:55] LABS: TROPONIN I < 0.012 ng/mL
[2019-06-05] MEDS: IPRATROPIUM BROMIDE 0.02% NEB 0.5 MG/2.5 ML AMPUL NEB SCH ×2 (14:01→20:18)
--- NOTE | 2019-06-05 17:36 | EKG REPORT ---
SEVERITY:- BORDERLINE ECG - SINUS TACHYCARDIA BORDERLINE INFERIOR Q WAVES BORDERLINE T ABNORMALITIES, INFERIOR LEADS : Confirmed by: Mic Francisco MD 05-Jun-2019 17:35:28
[2019-06-05 18:42] LABS: CREATINE KINASE MB 1.79 ng/mL (<4.55)
[2019-06-05 18:55] LABS: TROPONIN I < 0.012 ng/mL
[2019-06-05] MEDS ORDERED: METOCLOPRAMIDE HCL INJ/PF 10 MG/2 ML SDV IV ONE (19:00)
[2019-06-05] MEDS ORDERED: KETOROLAC TROMETHAMINE INJ/PF 30 MG/1 ML SDV IV ONE (19:00)
[2019-06-06] MEDS: IPRATROPIUM BROMIDE 0.02% NEB 0.5 MG/2.5 ML AMPUL NEB SCH ×2 (01:37→08:10)
[2019-06-06] MEDS: HEPARIN SOD (PORCINE) 5,000 UNIT/ML 1 ML VIAL SUBCUT SCH (05:28)
[2019-06-06 06:10] LABS: HEMATOCRIT 35.7 % (36.0-47.0); HEMOGLOBIN 11.9 g/dL (12.0-15.5); MEAN CORPUSCULAR HEMOGLOBIN 28.2 pg (27.0-33.4); MEAN CORPUSCULAR HGB CONC 33.3 g/dL (32.0-36.0); MEAN CORPUSCULAR VOLUME 85 fl (80-97); PLATELET COUNT 326 10^3/uL (150-450); RED BLOOD COUNT 4.22 10^6/uL (3.72-5.28); RED CELL DISTRIBUTION WIDTH 15.2 % (11.5-14.0); WHITE BLOOD COUNT 15.9 10^3/uL (4.0-10.5)
[2019-06-06 06:33] LABS: ANION GAP 6 (5-19); BLOOD UREA NITROGEN 17 mg/dL (7-20); CARBON DIOXIDE 24 mmol/L (22-30); CHLORIDE 106 mmol/L (98-107); GLUCOSE 98 mg/dL (75-110); POTASSIUM 4.6 mmol/L (3.6-5.0)
[2019-06-06 07:57] VITALS: BP 125/79
[2019-06-06] MEDS: BUDESONIDE NEB 0.5 MG/2 ML AMPUL NEB SCH (08:10)
[2019-06-06] MEDS: PREDNISONE 20 MG TABLET PO SCH (09:53)
[2019-06-06] MEDS: FAMOTIDINE 20 MG TABLET PO SCH (09:53)
[2019-06-06] MEDS: LORATADINE 10 MG TABLET PO SCH (09:53)
[2019-06-06] MEDS: CYANOCOBALAMIN (VITAMIN B-12) 1,000 MCG TABLET PO SCH (09:54)
[2019-06-06] MEDS: DOCUSATE SODIUM 100 MG CAPSULE PO SCH (09:54)
--- NOTE | 2019-06-06 11:01 | PDOC DISCHARGE SUMMARY ---
General - Admit/Disc Date/PCP Admission Date/Primary Care Provider: 06/05/19 01:11 Discharge Date: 06/06/19 - Additional Information Resuscitation Status: Full Code Discharge Diet: As Tolerated Discharge Activity: Activity As Tolerated Prescriptions: Prednisone [Deltasone 20 mg Tablet] 40 mg PO DAILY #10 tablet Albuterol Sulfate [Proair HFA Inhalation Aerosol 8.5 gm MDI] 2 puff IH Q4HP PRN #1 hfa.[email or web address] PRN Reason: SHORTNESS OF BREATH/WHEEZING Budesonide [Pulmicort Neb 0.5 mg/2 ml Ampul] 0.5 mg NEB RTBID #60 ampul.neb Home Medications: Albuterol Sulfate [Ventolin 0.083% Neb 2.5 mg/3 mL Ampul] 1 vial NEB RTQ4HP PRN 01/20/19 Cyanocobalamin (Vitamin B-12) [Vitamin B-12 1000 mcg Tablet] 1,000 mcg PO DAILY 01/20/19 Loratadine [Claritin 10 mg Tablet] 10 mg PO DAILY 01/20/19 Albuterol Sulfate [Proair HFA Inhalation Aerosol 8.5 gm MDI] 2 puff IH Q4HP PRN #1 hfa.aer.ad 06/06/19 Budesonide [Pulmicort Neb 0.5 mg/2 ml Ampul] 0.5 mg NEB RTBID #60 ampul.neb 06/06/19 Prednisone [Deltasone 20 mg Tablet] 40 mg PO DAILY #10 tablet 06/06/19 History of Present Illness History of Present Illness: ANIBAL QUINN is a 44 year old female who presents the emergency room via EMS with a 2-day history of dyspnea. She admits the gradual onset of dyspnea 2 days ago with progressive worsening to the point of being severe just prior to her summoning EMS to bring her to the hospital. The dyspnea has been accompanied by wheezing, right-sided inspiratory chest pain and a nonproductive cough. She denies other associated or accompanying symptoms. She admits numerous prior sim ilar episodes with exacerbations of her asthma and has been intubated 5 times for asthma exacerbations in the past. She has not identified any aggravating or ameliorating factors for her dyspnea. EMS treated her with magnesium sulfate 2 g IV and DuoNeb treatments x3 as well as 125 mg of Solu-Medrol IV and CPAP prior to her ER arrival. EMS treatment was able to provide her with some relief of he r severe dyspnea. In the ER she was noted to be hypoxic and tachypneic as well as tachycardic. Chest x-ray was unremarkable with the exception of hyperinflation and her laboratory evaluation was also unremarkable. Patient received numerous nebulizer treatments in the emergency room but was unable to clear her wheezing and continued to to develop hypoxia with any exertion. She was subsequently admitted to the hospital for further evaluation treatment. Hospital Course Hospital Course: (1) Acute asthma exacerbation Patient was treated with steroids and inhaled bronchodilators. She did very well. She wants to go home today. She is off oxygen. She will be discharged on short course of oral steroids and also inhaled corticosteroids. (2) Acute respiratory failure with hypoxia Patient was weaned off oxygen and did well. (3) Chest pain Chest tightness most likely related to asthma. Resolved. (4) Nonproductive cough Resolved. (5) Pernicious anemia Continue vitamin B12 supplements Physical Exam Vital Signs: Temp Pulse Resp BP Pulse Ox 97.4 F 110 H 16 125/79 96 06/06/19 07:40 06/06/19 08:11 06/06/19 08:11 06/06/19 07:40 06/06/19 08:11 Intake & Output 06/05/19 06/06/19 06/07/19 06:59 06:59 06:59 Intake Total 140 1240 Balance 140 1240 Weight 140 lb 3.424 oz 141 lb 1.533 oz Exam: Patient is no acute distress Alert oriented to time place person No anxiety or depression Head: atraumatic normocephalic Pupils: are equal reactive Neck: is supple and trachea is central no lymphadenopathy No pharyngeal erythema or exudates Heart: Regular rate and rhythm Lungs: Scattered wheezing Abdomen: nontender nondistended Neurological exam: unremarkable Musculoskeletal: No joint swelling or effusion chronic lower back pain and tenderness No suicidal or homicidal ideation Results Laboratory Results: 06/06/19 05:57 06/06/19 05:57 06/06/19 06/06/19 05:57 05:57 WBC 15.9 H RBC 4.22 Hgb 11.9 L Hct 35.7 L MCV 85 MCH 28.2 MCHC 33.3 RDW 15.2 H Plt Count 326 Sodium 136.4 L Potassium 4.6 Chloride 106 Carbon Dioxide 24 Anion Gap 6 BUN 17 Creatinine 0.78 Est GFR ( Amer) > 60 Glucose 98 Calcium 9.0 Magnesium 2.3 06/05/19 06/05/19 06/05/19 06:07 06:07 13:03 Creatine Kinase 98 107 CK-MB (CK-2) 1.86 Troponin I < 0.012 06/05/19 06/05/19 06/05/19 13:03 17:50 17:50 Creatine Kinase 98 CK-MB (CK-2) 2.09 1.79 Troponin I < 0.012 < 0.012 Impressions: Chest X-Ray 06/04/19 20:45 IMPRESSION: 1. No acute pulmonary findings. Qualifiers - * PATIENT BEING DISCHARGED WITH ANY OF THE FOLLOWING DIAGNOSIS: No Acute Heart Failure - Is this a Heart Failure Patient?: No
== END 2019-06-06 13:00 | disposition home or self-care (01) | DRG 203 ==
LOC: ER 20:23 → EH 06-05 01:11 → 4N 06-05 02:30
PROVIDERS: ADMIT Emergency Medicine; ATTEND Emergency Medicine
PROC: 5A09457 Assistance with Respiratory Ventilation, 24-96 Consecutive Hours, Continuous Positive Airway Pressure (ICD-10-PCS; principal; 2019-06-04)
DX: J45.51 Severe persistent asthma with (acute) exacerbation (principal); D51.0 Vitamin B12 deficiency anemia due to intrinsic factor deficiency
CPT/HCPCS: 36415; 71045; 80048; 80053; 82550; 82553; 82803; 83735; 84439; 84443; 84481; 84484; 85025; 85027; 93005; 93010; 94640; 94660; 99291; J1644; J1885; J2765; J2920; J3490; J7512

== ENCOUNTER 2019-07-28 23:28 | Emergency (ER) | payer SELFPAY ==
--- NOTE | 2019-07-28 23:55 | ER Document Report ---
ED General - General Stated Complaint: DIFFICULTY BREATHING Time Seen by Provider: 07/28/19 23:55 TRAVEL OUTSIDE OF THE [place] IN LAST 30 DAYS: No - HPI Patient complains to provider of: sob Notes: h/o asthma given mag and solumedrol by ems no chest pain worsening over 2 days with congestion and nonproductive cough no leg swelling or h/o pe or dvt is out of albuterol at home - Related Data Allergies/Adverse Reactions: No Known Allergies Allergy (Verified 06/04/19 20:45) Past Medical History - Social History Smoking Status: Unknown if Ever Smoked Family History: Other - Asthma. denies: CAD, DM, Hypertension, Malignancy - Past Medical History Cardiac Medical History: Denies: Hx Coronary Artery Disease, Hx Hypertension Pulmonary Medical History: Reports: Hx Asthma, Hx Intubation, Hx Respiratory Failure Neurological Medical History: Denies: Hx Seizures Endocrine Medical History: Denies: Hx Diabetes Mellitus Type 1, Hx Diabetes Mellitus Type 2, Hx Hyperthyroidism, Hx Hypothyroidism Renal/ Medical History: Denies: Hx Peritoneal Dialysis GI Medical History: Denies: Hx Cirrhosis, Hx Crohn's Disease, Hx Hepatitis, Hx Ulcerative Colitis Musculoskeletal Medical History: Denies Hx Arthritis, Denies Hx Gout Skin Medical History: Denies Hx Eczema, Denies Hx Psoriasis Psychiatric Medical History: Denies: Hx Depression Infectious Medical History: Denies: Hx Hepatitis Past Surgical History: Reports: Hx Orthopedic Surgery - wrist surgery, Other - Repair of hepatic laceration Review of Systems - Review of Systems Constitutional: No symptoms reported EENT: No symptoms reported Cardiovascular: No symptoms reported Respiratory: Cough, Short of breath, Wheezing. denies: Sputum Gastrointestinal: No symptoms reported Genitourinary: No symptoms reported Female Genitourinary: No symptoms reported Musculoskeletal: No symptoms reported Skin: No symptoms reported Hematologic/Lymphatic: No symptoms reported Neurological/Psychological: No symptoms reported Physical Exam - Vital signs Vitals: Temp Pulse Resp BP Pulse Ox 97.5 F 114 H 24 H 122/81 98 07/28/19 23:36 07/28/19 23:36 07/28/19 23:36 07/28/19 23:36 07/28/19 23:36 Interpretation: Normal - General General appearance: Appears well, Alert - HEENT Head: Normocephalic, Atraumatic Eyes: Normal Pupils: PERRL Mucous membranes: Normal Pharynx: Normal Neck: Normal. No: Lymphadenopathy - Respiratory Respiratory status: Tachypnea Chest status: Nontender Breath sounds: Wheezing Chest palpation: Normal - Cardiovascular Rhythm: Regular Heart sounds: Normal auscultation Murmur: No - Abdominal Inspection: Normal Distension: No distension Bowel sounds: Normal Tenderness: Nontender Organomegaly: No organomegaly - Back Back: Normal, Nontender - Extremities General upper extremity: Normal inspection, Nontender, Normal color, Normal ROM, Normal temperature General lower extremity: Normal inspection, Nontender, Normal color, Normal ROM, Normal temperature, Normal weight bearing. No: Shannan's sign - Neurological Neuro grossly intact: Yes Cognition: Normal Orientation: AAOx4 [place] Coma Scale Eye Opening: Spontaneous [place] Coma Scale Verbal: Oriented [place] Coma Scale Motor: Obeys Commands [place] Coma Scale Total: 15 Speech: Normal Motor strength normal: LUE, RUE, LLE, RLE Sensory: Normal - Psychological Associated symptoms: Normal affect, Normal mood - Skin Skin Temperature: Warm Skin Moisture: Dry Skin Color: Normal Course - Re-evaluation Re-evalutation: 07/29/19 00:09 given mag and steroids pre-hospital will give neb here and obs 07/29/19 00:30 improving while here after nebulizer treatments 07/29/19 01:32 continues to improve and feels comfortable for discharge dc w/ albuterol and prednisone and z pack - Vital Signs Vital signs: Temp Pulse Resp BP Pulse Ox 97.5 F 114 H 25 H 128/82 H 97 07/28/19 23:36 07/28/19 23:36 07/29/19 00:01 07/29/19 00:00 07/29/19 00:01 - Laboratory Result Diagrams: 07/29/19 00:20 07/29/19 00:20 Laboratory results interpreted by me: 07/29/19 07/29/19 00:20 00:20 WBC 12.1 H RDW 14.7 H Lymph % (Auto) 12.5 L Absolute Neuts (auto) 9.6 H Seg Neutrophils % 79.4 H Chloride 110 H Glucose 114 H Discharge - Discharge Clinical Impression: Asthma exacerbation Qualifiers: Asthma severity: unspecified severity Asthma persistence: unspecified Qualified Code(s): J45.901 - Unspecified asthma with (acute) exacerbation Condition: Stable Disposition: HOME, SELF-CARE Instructions: Asthma (OM) Additional Instructions: follow up with primary doctor as outpatient return to the ED with worsening take medicine as directed Prescriptions: Prednisone [Deltasone 20 mg Tablet] 3 tab PO DAILY 5 Days #15 tablet Albuterol Sulfate [Ventolin Hfa 8 gm Mdi (1 Mdi/ER Disp)] 2 puff IH ASDIR PRN #1 inhaler PRN Reason: Azithromycin [Zithromax] 250 mg PO DAILY #6 tablet Referrals: KATIE KIRKLAND MD [HONORARY] - Follow up as needed
[2019-07-28] MEDS ORDERED: IPRATROPIUM/ALBUTEROL 0.5-2.5 MG/3 ML AMPUL NEB ONE (23:58)
[2019-07-28] MEDS ORDERED: NORMAL SALINE 1000 ML 1,000 ML IV ONE (23:59)
[2019-07-29 00:17] VITALS: BP 128/82
[2019-07-29 00:47] LABS: ABSOLUTE EOSINOPHILS # (AUTO) 0.5 10^3/uL (0.0-0.6); ABSOLUTE LYMPHOCYTES (AUTO) 1.5 10^3/uL (0.5-4.7); ABSOLUTE MONOCYTES (AUTO) 0.4 10^3/uL (0.1-1.4); ABSOLUTE NEUT (AUTO) 9.6 10^3/uL (1.7-8.2); BASOPHILS % (AUTO) 0.2 % (0-2); EOSINOPHILS % (AUTO) 4.5 % (0-6); HEMATOCRIT 38.8 % (36.0-47.0); HEMOGLOBIN 13.2 g/dL (12.0-15.5); LYMPHOCYTES % (AUTO) 12.5 % (13-45); MEAN CORPUSCULAR HEMOGLOBIN 29.2 pg (27.0-33.4); MEAN CORPUSCULAR VOLUME 86 fl (80-97); MONOCYTES % (AUTO) 3.4 % (3-13); PLATELET COUNT 346 10^3/uL (150-450); RED BLOOD COUNT 4.52 10^6/uL (3.72-5.28); RED CELL DISTRIBUTION WIDTH 14.7 % (11.5-14.0); SEGMENTED NEUTROPHILS % (AUTO) 79.4 % (42-78); TOTAL CELLS COUNTED % (AUTO) 100 %; WHITE BLOOD COUNT 12.1 10^3/uL (4.0-10.5)
[2019-07-29 01:06] LABS: ANION GAP 10 (5-19); BLOOD UREA NITROGEN 8 mg/dL (7-20); CARBON DIOXIDE 22 mmol/L (22-30); CHLORIDE 110 mmol/L (98-107); GLUCOSE 114 mg/dL (75-110)
--- NOTE | 2019-07-29 01:27 | RADIOLOGY REPORT (SQ) ---
CLINICAL HISTORY: cough COMPARISON: 06/04/2019. TECHNIQUE: XR CHEST 2 VIEWS 07/28/2019 12:00 AM EVAPORATOR FINDINGS: Cardiac silhouette is normal in size. Lungs are clear without consolidation, atelectasis, mass or edema. There is no pleural effusion. There is no pneumothorax. There are no acute osseous findings. IMPRESSION: Clear lungs.
[2019-07-29 02:34] LABS: A TYPE INFLUENZA AG NEGATIVE (NEGATIVE); B INFLUENZA AG NEGATIVE (NEGATIVE)
== END 2019-07-29 01:50 | disposition home or self-care (01) ==
LOC: ER 23:28
DX: J45.901 Unspecified asthma with (acute) exacerbation (principal); R06.02 Shortness of breath; R05 Cough
CPT/HCPCS: 36415; 71046; 80048; 85025; 87804; J7030; J7620

== ENCOUNTER 2019-08-24 13:26 | Emergency (ER) | payer SELFPAY ==
[2019-08-24 14:46] VITALS: BP 118/72
--- NOTE | 2019-08-24 15:24 | ER Document Report ---
HPI - HPI Time Seen by Provider: 08/24/19 15:05 Pain Level: 3 Notes: 44-year-old female patient presenting to the emergency department chief complaint of dental pain. Patient reports dental pain around tooth #2 to the right upper gumline. She states that the tooth broke a few days ago and fragments keep coming out. Patient reports she now has severe pain to the area with severe sensitivity with any oral intake or talking. She states she went and tried seeing a dentist today, states she could not get in with them so she went to her primary care who prescribed her antibiotics. She states that the pain is unbearable. - REPRODUCTIVE Reproductive: DENIES: : Past Medical History - General Information source: Patient - Social History Smoking Status: Never Smoker Chew tobacco use (# tins/day): No Frequency of alcohol use: None Drug Abuse: None Family History: Other - Asthma. denies: CAD, DM, Hypertension, Malignancy Patient has suicidal ideation: No Patient has homicidal ideation: No - Past Medical History Cardiac Medical History: Denies: Hx Coronary Artery Disease, Hx Hypertension Pulmonary Medical History: Reports: Hx Asthma, Hx Intubation, Hx Respiratory Failure Neurological Medical History: Denies: Hx Seizures Endocrine Medical History: Denies: Hx Diabetes Mellitus Type 1, Hx Diabetes Mellitus Type 2, Hx Hyperthyroidism, Hx Hypothyroidism Renal/ Medical History: Denies: Hx Peritoneal Dialysis GI Medical History: Denies: Hx Cirrhosis, Hx Crohn's Disease, Hx Hepatitis, Hx Ulcerative Colitis Musculoskeletal Medical History: Denies Hx Arthritis, Denies Hx Gout Skin Medical History: Denies Hx Eczema, Denies Hx Psoriasis Psychiatric Medical History: Denies: Hx Depression Infectious Medical History: Denies: Hx Hepatitis Past Surgical History: Reports: Hx Orthopedic Surgery - wrist surgery, Other - Repair of hepatic laceration Vertical Provider Document - CONSTITUTIONAL Notes: PHYSICAL EXAMINATION: GENERAL: Well-appearing, well-nourished and in mild to moderate distress. HEAD: Atraumatic, normocephalic. EYES: Pupils equal round extraocular movements intact, conjunctiva are normal. ENT: Nares patent, fractured tooth #2, surrounding erythema without fluctuance. NECK: Normal range of motion LUNGS: No respiratory distress Musculoskeletal: Normal range of motion NEUROLOGICAL: Normal speech, normal gait. PSYCH: Tearful. SKIN: Warm, Dry, normal turgor, no rashes or lesions noted. - INFECTION CONTROL TRAVEL OUTSIDE OF THE [place] IN LAST 30 DAYS: No Course - Re-evaluation Re-evalutation: Patient has dental appointment scheduled, this is not for 2 weeks from now. Patient encouraged to start taking the antibiotics as prescribed by her primary care provider. A short course of pain medication will be provided to the patient as she does appear to be in significant pain. Patient also encouraged to take ibuprofen as outlined in her discharge instructions. The patient's emergency department workup and current diagnosis were explained to the patient and or family. Follow-up instructions were provided. Medications if prescribed were discussed. Instructions for when to return to the emergency department including specific worrisome symptoms were discussed with the patient and/or family. - Vital Signs Vital signs: Temp Pulse Resp BP Pulse Ox 98.0 F 74 16 114/72 100 08/24/19 13:54 08/24/19 13:54 08/24/19 13:54 08/24/19 13:54 08/24/19 13:54 Discharge - Discharge Clinical Impression: dental fracture Condition: Stable Disposition: HOME, SELF-CARE Additional Instructions: Please take medication as prescribed. As soon as you get your antibiotic please take 2 tablets of the amoxicillin and then take 1 tab before bed. Resume normal schedule tomorrow. You may take 1 or 2 of the pain medications I have prescribed every 4 hours. Please also take ibuprofen 600 mg every 6 hours. Keep the dental appointment scheduled for 2 weeks. Prescriptions: Oxycodone HCl/Acetaminophen [Percocet 5-325 mg Tablet] 1 tab PO Q4H PRN #10 tablet PRN Reason: Referrals: KATIE KIRKLAND MD [Primary Care Provider] - Follow up as needed
== END 2019-08-24 15:30 | disposition home or self-care (01) ==
LOC: ER 13:26
DX: S02.5XXA Fracture of tooth (traumatic), initial encounter for closed fracture (principal); X58.XXXA Exposure to other specified factors, initial encounter
CPT/HCPCS: 99282

== ENCOUNTER 2020-03-07 10:59 | Emergency (ER) | payer BC ==
[2020-03-07 11:04] VITALS: BP 120/75
[2020-03-07] MEDS ORDERED: KETOROLAC TROMETHAMINE 60 MG/2 ML SDV IM ONE (11:10)
--- NOTE | 2020-03-07 11:13 | ER Document Report ---
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 Associated Symptoms: None Exacerbated by: Denies Relieved by: Denies - REPRODUCTIVE Reproductive: DENIES: : Past Medical History - General Information source: Patient - Social History Smoking Status: Current Every Day Smoker Cigarette use (# per day): No Chew tobacco use (# tins/day): No Smoking Education Provided: No Frequency of alcohol use: None Drug Abuse: None Lives with: Alone Family History: Other - Asthma. denies: CAD, DM, Hypertension, Malignancy Patient has suicidal ideation: No Patient has homicidal ideation: No - Past Medical History Cardiac Medical History: Denies: Hx Coronary Artery Disease, Hx Hypertension Pulmonary Medical History: Reports: Hx Asthma, Hx Intubation, Hx Respiratory Failure Neurological Medical History: Denies: Hx Seizures Endocrine Medical History: Denies: Hx Diabetes Mellitus Type 1, Hx Diabetes Mellitus Type 2, Hx Hyperthyroidism, Hx Hypothyroidism Renal/ Medical History: Denies: Hx Peritoneal Dialysis GI Medical History: Denies: Hx Cirrhosis, Hx Crohn's Disease, Hx Hepatitis, Hx Ulcerative Colitis Musculoskeletal Medical History: Denies Hx Arthritis, Denies Hx Gout Skin Medical History: Denies Hx Eczema, Denies Hx Psoriasis Psychiatric Medical History: Denies: Hx Depression Infectious Medical History: Denies: Hx Hepatitis Past Surgical History: Reports: Hx Orthopedic Surgery - wrist surgery, Other - Repair of hepatic laceration Vertical Provider Document - CONSTITUTIONAL Agree With Documented VS: Yes - INFECTION CONTROL TRAVEL OUTSIDE OF THE [place] IN LAST 30 DAYS: No - HEENT HEENT: Atraumatic, Conjuctival Injection, Normocephalic, PERRLA - NECK Neck: Normal Inspection - RESPIRATORY Respiratory: Breath Sounds Normal, No Respiratory Distress - CARDIOVASCULAR Cardiovascular: Regular Rate, Regular Rhythm - GI/ABDOMEN Gastrointestinal: Abdomen Soft, Abdomen Non-Tender - REPRODUCTIVE Female Genitalia: Normal Inspection - BACK Back: Normal Inspection - MUSCULOSKELETAL/EXTREMETIES Musculoskeletal/Extremeties: MAEW - NEURO Level of Consciousness: Awake, Alert, Appropriate Course - Re-evaluation Re-evalutation: 03/07/20 11:11 No numbness no tingling is no loss of bowel or bladder function ambulatory with a rhythmic and steady gait. Pain does run from the groin laterally down the right lower extremity stopping at the knee. Patient does have appointments for orthopedics as well as for physical therapy. She has good distal pulses. - Vital Signs Vital signs: Temp Pulse Resp BP Pulse Ox 98.4 F 91 14 120/75 99 03/07/20 11:03 03/07/20 11:03 03/07/20 11:03 03/07/20 11:03 03/07/20 11:03 Discharge - Discharge Clinical Impression: History of arthritis Condition: Good Disposition: HOME, SELF-CARE Instructions: Arthritis ([facility]) Prescriptions: Diclofenac Sodium [Voltaren 50 mg Tablet.] 50 mg PO Q12 #20 tablet. Referrals: KATIE KIRKLAND MD [Primary Care Provider] - Follow up as needed
== END 2020-03-07 11:43 | disposition home or self-care (01) ==
LOC: ER 10:59
DX: M16.11 Unilateral primary osteoarthritis, right hip (principal); J45.909 Unspecified asthma, uncomplicated; F17.200 Nicotine dependence, unspecified, uncomplicated
CPT/HCPCS: 99283; J1885

== ENCOUNTER 2020-07-03 16:13 | Emergency (ER) | payer BC ==
[2020-07-03] MEDS ORDERED: DEXAMETHASONE SOD PHOS INJ 10 MG/1 ML VIAL IV ONE (16:38)
[2020-07-03] MEDS ORDERED: IPRATROPIUM/ALBUTEROL 0.5-2.5 MG/3 ML AMPUL NEB ONE (16:38)
--- NOTE | 2020-07-03 16:41 | ER Document Report ---
ED Medical Screen (RME) - General Chief Complaint: Cough Stated Complaint: SHORT OF BREATH,BODY PAIN,HEADACHE Time Seen by Provider: 07/03/20 16:29 Primary Care Provider: ZHOU PADGETT NP [Primary Care Provider] - Follow up as needed TRAVEL OUTSIDE OF THE [place] IN LAST 30 DAYS: No - HPI Notes: 07/03/20 16:40 45-year-old female to the emergency department with complaints of shortness of breath, cough, body aches, headache, sore throat, nausea, diarrhea for the past 4 days. She also admits to subjective fevers and chills. She states that she has COPD and uses albuterol. She states that she does not know of any exposures to COVID-19 but she is worried that she may have it. She is a former smoker. Denies any chest pain. On medical screening exam patient is wheezing throughout all lung davila on expiration. I performed a brief medical screening exam on the patient determined that the patient needs further evaluation and management by main side provider. I have placed initial orders to help expedite care. - Related Data Allergies/Adverse Reactions: No Known Allergies Allergy (Verified 03/07/20 11:06) Home Medications: ALBUTEROL. CELEXA. ADDERALL Past Medical History - Social History Chew tobacco use (# tins/day): No Frequency of alcohol use: None Drug Abuse: None - Past Medical History Cardiac Medical History: Denies: Hx Coronary Artery Disease, Hx Hypertension Pulmonary Medical History: Reports: Hx Asthma, Hx COPD, Hx Intubation, Hx Respiratory Failure Neurological Medical History: Denies: Hx Seizures Endocrine Medical History: Denies: Hx Diabetes Mellitus Type 1, Hx Diabetes Mellitus Type 2, Hx Hyperthyroidism, Hx Hypothyroidism Renal/ Medical History: Denies: Hx Peritoneal Dialysis GI Medical History: Denies: Hx Cirrhosis, Hx Crohn's Disease, Hx Hepatitis, Hx Ulcerative Colitis Musculoskeltal Medical History: Denies Hx Arthritis, Denies Hx Gout Skin Medical History: Denies Hx Eczema, Denies Hx Psoriasis Psychiatric Medical History: Denies: Hx Depression Infectious Medical History: Denies: Hx Hepatitis Past Surgical History: Reports: Hx Abdominal Surgery - liver lac, Hx Orthopedic Surgery - wrist surgery, Other - Repair of hepatic laceration Physical Exam - Vital signs Vitals: Temp Pulse Resp BP Pulse Ox 98.2 F 109 H 18 124/81 97 07/03/20 16:21 07/03/20 16:21 07/03/20 16:21 07/03/20 16:21 07/03/20 16:21 Course - Vital Signs Vital signs: Temp Pulse Resp BP Pulse Ox 98.2 F 109 H 18 124/81 97 07/03/20 16:32 07/03/20 16:21 07/03/20 16:21 07/03/20 16:21 07/03/20 16:21 Doctor's Discharge - Discharge Referrals: ZHOU PADGETT, PEG DRIVER [Primary Care Provider] - Follow up as needed
[2020-07-03 17:22] LABS: ABSOLUTE BASOPHILS # (AUTO) 0.1 10^3/uL (0.0-0.2); ABSOLUTE EOSINOPHILS # (AUTO) 0.4 10^3/uL (0.0-0.6); ABSOLUTE LYMPHOCYTES (AUTO) 2.1 10^3/uL (0.5-4.7); ABSOLUTE MONOCYTES (AUTO) 0.7 10^3/uL (0.1-1.4); ABSOLUTE NEUT (AUTO) 5.8 10^3/uL (1.7-8.2); BASOPHILS % (AUTO) 0.6 % (0-2); EOSINOPHILS % (AUTO) 4.6 % (0-6); HEMATOCRIT 40.6 % (36.0-47.0); HEMOGLOBIN 14.3 g/dL (12.0-15.5); LYMPHOCYTES % (AUTO) 23.5 % (13-45); MEAN CORPUSCULAR HEMOGLOBIN 29.8 pg (27.0-33.4); MEAN CORPUSCULAR HGB CONC 35.1 g/dL (32.0-36.0); MEAN CORPUSCULAR VOLUME 85 fl (80-97); MONOCYTES % (AUTO) 7.3 % (3-13); PLATELET COUNT 386 10^3/uL (150-450); RED BLOOD COUNT 4.78 10^6/uL (3.72-5.28); RED CELL DISTRIBUTION WIDTH 14.8 % (11.5-14.0); TOTAL CELLS COUNTED % (AUTO) 100 %; WHITE BLOOD COUNT 9.1 10^3/uL (4.0-10.5)
[2020-07-03 18:12] LABS: A TYPE INFLUENZA AG NEGATIVE (NEGATIVE); B INFLUENZA AG NEGATIVE (NEGATIVE)
--- NOTE | 2020-07-03 18:15 | RADIOLOGY REPORT (SQ) ---
EXAM DESCRIPTION: CHEST SINGLE VIEW IMAGES COMPLETED DATE/TIME: 07/03/2020 6:04 pm REASON FOR STUDY: SOB, wheezing COMPARISON: 07/29/2019 EXAM PARAMETERS: NUMBER OF VIEWS: One view. TECHNIQUE: Single frontal radiographic view of the chest acquired. RADIATION DOSE: NA LIMITATIONS: None. FINDINGS: LUNGS AND PLEURA: No opacities, masses or pneumothorax. No pleural effusion. MEDIASTINUM AND HILAR STRUCTURES: No masses. Contour normal. HEART AND VASCULAR STRUCTURES: Heart normal in size. Normal vasculature. BONES: No acute findings. HARDWARE: None in the chest. OTHER: No other significant finding. IMPRESSION: NO ACUTE RADIOGRAPHIC FINDING IN THE CHEST. TECHNICAL DOCUMENTATION: JOB ID: [id number] [employer]- All Rights Reserved Reading location - IP/workstation name: [email or web address]
--- NOTE | 2020-07-03 19:16 | ER Document Report ---
ED Respiratory Problem - General Chief Complaint: Cough Stated Complaint: SHORT OF BREATH,BODY PAIN,HEADACHE Time Seen by Provider: 07/03/20 16:29 Primary Care Provider: ZHOU PADGETT, PATIENT CARE ASSISTANT [Primary Care Provider] - Follow up as needed Mode of Arrival: Ambulatory Information source: Patient Notes: 07/03/20 16:33 - [id number] 1975 Patient Age: 45 PT REPORTS SOB X 3 DAYS. STATES FEVER BODY PAIN COUGH HEADACHE NAUSEA DIARRHEA. DENIES VOMITING. C/O SORE THROAT. COUGH IS NONPRODUCTIVE. REPORTS LOSS OF TASTE AND SMELL. PT IS ALERT AND ORIENTED. RESP ARE EVEN AND UNLABORED. PT IS SPEAKING IN FULL SENTENCES. ED Medical Screen (Synder notes) - General Chief Complaint: Cough Stated Complaint: SHORT OF BREATH,BODY PAIN,HEADACHE Time Seen by Provider: 07/03/20 16:29 Primary Care Provider: ZHOU PADGETT, PATIENT CARE ASSISTANT [Primary Care Provider] - Follow up as needed TRAVEL OUTSIDE OF THE [place] IN LAST 30 DAYS: No - HPI Notes: 07/03/20 16:40 45-year-old female to the emergency department with complaints of shortness of breath, cough, body aches, headache, sore throat, nausea, diarrhea for the past 4 days. She also admits to subjective fevers and chills. She states that she has COPD and uses albuterol. She states that she does not know of any exposures to COVID-19 but she is worried that she may have it. She is a former smoker. Denies any chest pain. On medical screening exam patient is wheezing throughout all lung davila on expiration. I performed a brief medical screening exam on the patient determined that the patient needs further evaluation and management by main side provider. I have placed initial orders to help expedite care. MY NOTES 45-year-old female arrives with 5 to 6-day history of having shortness of breath dyspnea on exertion nonproductive cough myalgias headache sore throat nausea and diarrhea. Patient takes classes for medical assistance online and does not need a work note. Patient denies any exposure to influenza or for coronavirus. Patient reports he feels much improved after Decadron IV. She has IV in place. Patient also has loss of taste and smell agnosia. Lungs are clear on my exam by 1925. Patient does have a history of being cigarette smoker but has been non-smoker for year. TRAVEL OUTSIDE OF THE [place] IN LAST 30 DAYS: No - HPI Patient complains to provider of: Cough, Short of breath Onset: Last week Duration: Better Quality of pain: Achy Severity: Mild Pain Level: 1 Context: Smoker Short of Breath: Mild Cough: Nonproductive - Related Data Allergies/Adverse Reactions: No Known Allergies Allergy (Verified 03/07/20 11:06) Home Medications: ALBUTEROL. CELEXA. ADDERALL Past Medical History - General Information source: Patient - Social History Smoking Status: Former Smoker Cigarette use (# per day): No Chew tobacco use (# tins/day): No Smoking Education Provided: No Frequency of alcohol use: None Drug Abuse: None Lives with: Family Family History: Other - Asthma. denies: CAD, DM, Hypertension, Malignancy Patient has suicidal ideation: No Patient has homicidal ideation: No - Past Medical History Cardiac Medical History: Denies: Hx Coronary Artery Disease, Hx Hypertension Pulmonary Medical History: Reports: Hx Asthma, Hx COPD, Hx Intubation, Hx Respiratory Failure Neurological Medical History: Denies: Hx Seizures Endocrine Medical History: Denies: Hx Diabetes Mellitus Type 1, Hx Diabetes Mellitus Type 2, Hx Hyperthyroidism, Hx Hypothyroidism Renal/ Medical History: Denies: Hx Peritoneal Dialysis GI Medical History: Denies: Hx Cirrhosis, Hx Crohn's Disease, Hx Hepatitis, Hx Ulcerative Colitis Musculoskeletal Medical History: Denies Hx Arthritis, Denies Hx Gout Skin Medical History: Denies Hx Eczema, Denies Hx Psoriasis Psychiatric Medical History: Denies: Hx Depression Infectious Medical History: Denies: Hx Hepatitis Past Surgical History: Reports: Hx Abdominal Surgery - liver lac, Hx Orthopedic Surgery - wrist surgery, Other - Repair of hepatic laceration Review of Systems - Review of Systems Constitutional: See HPI, Fever, Weakness, Recent illness EENT: See HPI, Throat pain Cardiovascular: No symptoms reported Respiratory: See HPI, Cough, Short of breath Gastrointestinal: No symptoms reported Genitourinary: No symptoms reported Female Genitourinary: No symptoms reported Musculoskeletal: No symptoms reported Skin: No symptoms reported Hematologic/Lymphatic: No symptoms reported Neurological/Psychological: See HPI, Other - Loss of smell and taste Physical Exam - Vital signs Vitals: Temp Pulse Resp BP Pulse Ox 98.2 F 109 H 18 124/81 97 07/03/20 16:21 07/03/20 16:21 07/03/20 16:21 07/03/20 16:21 07/03/20 16:21 Interpretation: Normal - General General appearance: Appears well, Alert - HEENT Head: Normocephalic, Atraumatic Eyes: Normal Pupils: PERRL - Respiratory Respiratory status: No respiratory distress Chest status: Nontender Breath sounds: Normal Chest palpation: Normal - Cardiovascular Rhythm: Regular Heart sounds: Normal auscultation Murmur: No - Abdominal Inspection: Normal Distension: No distension Bowel sounds: Normal Tenderness: Nontender Organomegaly: No organomegaly - Rectal Hemorrhoids: Other - deferred - Genitourinary Bimanuel exam: Other - deferred - Back Back: Normal, Nontender - Extremities General upper extremity: Normal inspection, Nontender, Normal color, Normal ROM, Normal temperature General lower extremity: Normal inspection, Nontender, Normal color, Normal ROM, Normal temperature, Normal weight bearing. No: Shannan's sign - Neurological Neuro grossly intact: Yes Cognition: Normal Orientation: AAOx4 Franklin Coma Scale Eye Opening: Spontaneous [place] Coma Scale Verbal: Oriented [place] Coma Scale Motor: Obeys Commands [place] Coma Scale Total: 15 Speech: Normal Motor strength normal: LUE, RUE, LLE, RLE Sensory: Normal - Psychological Associated symptoms: Normal affect, Normal mood - Skin Skin Temperature: Warm Skin Moisture: Dry Skin Color: Normal Course - Vital Signs Vital signs: Temp Pulse Resp BP Pulse Ox 98.2 F 109 H 18 124/81 97 07/03/20 16:32 07/03/20 16:21 07/03/20 16:21 07/03/20 16:21 07/03/20 16:21 - Laboratory Result Diagrams: 07/03/20 17:11 07/03/20 17:11 Laboratory results interpreted by me: 07/03/20 17:11 RDW 14.8 H - Diagnostic Test Radiology reviewed: Reports reviewed Discharge - Discharge Clinical Impression: COVID-19 virus test result unknown Asthmatic bronchitis Qualifiers: Asthma severity: mild Asthma persistence: intermittent Asthma complication type: uncomplicated Qualified Code(s): J45.20 - Mild intermittent asthma, uncomplicated Condition: Good Disposition: HOME, SELF-CARE Additional Instructions: Follow-up with personal doctor this week; return to ER as needed stay qu arantined until results of Covid test result. This should be an 3 days or so. Take medicines as directed encourage fluids; Prescriptions: Dexamethasone [Decadron 4 Mg Tablet] 4 mg PO DAILY #5 tablet Famotidine [Pepcid 20 mg Tablet] 20 mg PO BID #12 tablet Azithromycin [Zithromax 250 mg Tablet] 250 mg PO ASDIR PRN #6 tablet PRN Reason: Referrals: ZHOU PADGETT, PATIENT CARE ASSISTANT [Primary Care Provider] - Follow up as needed
[2020-07-03] MEDS ORDERED: AZITHROMYCIN 250 MG TABLET PO ONE (19:40)
[2020-07-03 19:57] VITALS: BP 111/61
--- NOTE | 2020-07-03 21:19 | EKG REPORT ---
SEVERITY:- NORMAL ECG - SINUS RHYTHM : Confirmed by: Shiva Reyes MD 03-Jul-2020 21:18:52
== END 2020-07-03 19:57 | disposition home or self-care (01) ==
LOC: ER 16:13
DX: J45.20 Mild intermittent asthma, uncomplicated (principal); R06.02 Shortness of breath; R51.9 Headache, unspecified; R43.8 Other disturbances of smell and taste; J44.9 Chronic obstructive pulmonary disease, unspecified; Z20.828 Contact with and (suspected) exposure to other viral communicable diseases; Z87.891 Personal history of nicotine dependence
CPT/HCPCS: 93005; 94640; 99285; 96365; 36415; 87070; 87880; 85025; 87804; 71045; 93010; U0003; J1100; C9803; 87635